=== PATIENT | female | born 1945 | race Hispanic/Latino ===

== ENCOUNTER 2022-01-30 14:38 | Emergency (ER) | payer MEDICARE ==
[~2022-01-30] VITALS: Ht 157.5 cm; Wt 74.8 kg
== END 2022-01-30 16:01 | disposition home or self-care (01) ==
LOC: FSED 14:43
DX: R05.9 Cough, unspecified (principal); J10.1 Influenza due to other identified influenza virus with other respiratory manifestations; B34.9 Viral infection, unspecified; E78.5 Hyperlipidemia, unspecified; I10 Essential (primary) hypertension; G40.909 Epilepsy, unspecified, not intractable, without status epilepticus; G47.00 Insomnia, unspecified
CPT/HCPCS: 83518; 87400; 99282